=== PATIENT | male | born 1995 | race Caucasian/White ===

== ENCOUNTER 2020-07-18 18:54 | Emergency (ER) | payer OTHER, MEDICAID ==
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
== END 2020-07-18 21:02 | disposition home or self-care (01) ==
LOC: VM.ED 18:54
DX: S09.90XA Unspecified injury of head, initial encounter (principal); S16.1XXA Strain of muscle, fascia and tendon at neck level, initial encounter; V49.40XA Driver injured in collision with unspecified motor vehicles in traffic accident, initial encounter
CPT/HCPCS: 70450; 72100; 72125; 99284; 99284-25